=== PATIENT | female | born 1960 | race Caucasian/White ===

== ENCOUNTER 2023-03-28 08:11 | Day surgery (SDC) | payer OTHER ==
[2023-03-28] MEDS ORDERED: fentaNYL 50 MCG/ML SDV ONE (08:33)
[2023-03-28] MEDS ORDERED: Propofol 200 MG/20 ML SDV ONE (08:33)
[2023-03-28] MEDS ORDERED: Midazolam 1 MG/ML 2 ML SDV ONE (08:33)
[2023-03-28] MEDS ORDERED: Sodium Chloride 0.9% 1,000 ML IV SCH (08:45)
== END 2023-03-28 11:13 | disposition home or self-care (01) ==
LOC: JP.SDS 08:11
PROVIDERS: ATTEND Surgery
DX: Z12.11 Encounter for screening for malignant neoplasm of colon (principal); K63.5 Polyp of colon; K62.1 Rectal polyp; E66.9 Obesity, unspecified; Z88.0 Allergy status to penicillin
CPT/HCPCS: 45380; 88305; J2250; J2704; J3010; J7030